=== PATIENT | male | born 1965 | race African-American/Black ===

== ENCOUNTER 2017-08-21 13:30 | Emergency (ER) | payer SELFPAY ==
[2017-08-21] MEDS ORDERED: ONDANSETRON PF 4 MG/2 ML VIAL. IV (13:45)
[2017-08-21 13:54] LABS: ADD MAN DIFF? NO
[2017-08-21] MEDS: IV NORMAL SALINE 1000ML BAG 1,000 ML IV ×2 (13:54→14:12)
[2017-08-21 13:57] LABS: BASO % 1 % (0-3); EOS # 0.4 x10^3/uL (0.0-0.7); EOS % 10 % (0-3); HEMATOCRIT 46.9 % (39.0-53.0); HEMOGLOBIN 16.3 g/dL (13.0-17.5); LYMPH % 42 % (24-48); MEAN CORPUSCULAR HEMOGLOBIN 31 pg (25-35); MEAN CORPUSCULAR HGB CONC 35 g/dL (31-37); MEAN CORPUSCULAR VOLUME 90 fL (79-100); MONO # 0.3 x10^3/uL (0.0-1.1); MONO % 7 % (0-9); NEUT # 1.9 x10^3uL (1.8-7.7); NEUT % 41 % (31-73); PLATELET COUNT 333 x10^3/uL (140-400); RED BLOOD COUNT 5.22 x10^6/uL (4.30-5.70); RED CELL DISTRIBUTION WIDTH 14.3 % (11.5-14.5); WHITE BLOOD COUNT 4.7 x10^3/uL (4.0-11.0)
[2017-08-21 14:12] LABS: ANION GAP 10 (6-14); BLOOD UREA NITROGEN 14 mg/dL (8-26); BUN/CREATININE RATIO 11 (6-20); CALCIUM 8.4 mg/dL (8.5-10.1); CARBON DIOXIDE 29 mmol/L (21-32); CHLORIDE 102 mmol/L (98-107); CREATININE 1.3 mg/dL (0.7-1.3); GFR 70.4; GLUCOSE 99 mg/dL (70-99); POTASSIUM 3.5 mmol/L (3.5-5.1); SODIUM 141 mmol/L (136-145)
[2017-08-21 14:19] LABS: ALBUMIN 3.9 g/dL (3.4-5.0); ALK PHOS 66 U/L (46-116); ALT (SGPT) 36 U/L (16-63); AST (SGOT) 15 U/L (15-37); TOTAL BILIRUBIN 0.5 mg/dL (0.2-1.0)
[2017-08-21 15:35] LABS: BILIRUBIN,URINE NEGATIVE (NEG); CLARITY,URINE CLEAR; COLOR,URINE YELLOW; GLUCOSE,URINE NEGATIVE (NEG); NITRITE,URINE NEGATIVE (NEG); PROTEIN,URINE NEGATIVE (NEG-TRACE)
[2017-08-21 15:49] LABS: BACTERIA,URINE 0 /HPF (0-FEW); RBC,URINE 0 /HPF (0-2); SQUAMOUS EPITHELIAL CELL,UR FEW /LPF; WBC,URINE 0 /HPF (0-4)
== END 2017-08-21 16:00 | disposition home or self-care (01) ==
LOC: ER 13:30
DX: T67.5XXA Heat exhaustion, unspecified, initial encounter (principal); E86.0 Dehydration; Z91.012 Allergy to eggs; X30.XXXA Exposure to excessive natural heat, initial encounter; Y93.89 Activity, other specified; Y99.8 Other external cause status; Y92.89 Other specified places as the place of occurrence of the external cause
CPT/HCPCS: 36415; 80053; 81001; 85025; 93005; 96360; 99285-25; J7030

== ENCOUNTER 2018-03-30 16:24 | Emergency (ER) | payer SELFPAY ==
[~2018-03-30] VITALS: Ht 175.3 cm; Wt 81.6 kg
[~2018-03-30 16:24] MED LIST: HYDR-2761 PO; IBUPROFEN PO; NAPROSYN PO; ONDA4TAB10 SL; OXYC1TAB15 PO; PANT40TA3 PO; PRED-220 PO
[2018-03-30 16:35] VITALS: BP 125/83
[2018-03-30 17:26] LABS: BILIRUBIN,URINE NEGATIVE (NEG); CLARITY,URINE CLEAR; COLOR,URINE YELLOW; NITRITE,URINE NEGATIVE (NEG); PH,URINE 5.5; PROTEIN,URINE NEGATIVE (NEG-TRACE); UROBILINOGEN,URINE 0.2 mg/dL (0.2 mg/dL)
[2018-03-30 17:36] LABS: SQUAMOUS EPITHELIAL CELL,UR FEW /LPF
[2018-03-30 17:37] LABS: BACTERIA,URINE 0 /HPF (0-FEW); RBC,URINE 0 /HPF (0-2); WBC,URINE 0 /HPF (0-4)
[2018-03-30 17:40] LABS: BARBITURATES NEG (NEG); BENZODIAZEPINES NEG (NEG); CANNABINOIDS NEG (NEG); COCAINE POS (NEG); METHADONE NEG (NEG); OPIATES NEG (NEG); PHENCYCLIDINE NEG (NEG)
[2018-03-30 17:42] LABS: AMPHETAMINE/METHAMPHETAMINE NEG (NEG)
--- NOTE | 2018-03-30 17:45 | RAD ---
Indication: Sore throat for 3 days. Burning sensation in the hilar region. TECHNIQUE: 3 views of the soft tissue neck COMPARISON: None FINDINGS: Trachea is patent. No prevertebral soft tissue thickening. No metallic or calcific foreign body seen. Visualized lung apices are clear. Mild degenerative disc disease at C3-C4, C4-C5. IMPRESSION: No prevertebral/retropharyngeal soft tissue thickening. Electronically signed by: Wood Nguyễn DO (03/30/2018 5:42 PM) [facility]
[2018-03-30] MEDS ORDERED: AMOX875T PO (17:52)
--- NOTE | 2018-03-30 17:53 | PHYS DOC ---
Past Medical History Past Medical History: Anxiety, Hypertension (GIL LOPEZ APRN) Past Surgical History: Other Additional Past Surgical Histo: left elbow (GIL LOPEZ APRN) Alcohol Use: Occasionally Drug Use: None (GIL LOPEZ APRN) Adult General Chief Complaint Chief Complaint: SORE THROAT HPI HPI Patient is a 53 year old male who presents with a sore throat 4 days. The patient thinks that there is a parasite in his throat that he feels is some moving around from one side to the other. He states that he made himself vomit last night to try and get rid of the parasite. He denies fever, body aches or an inability to swallow. The patient is handling his own secretions. The patient denies recreational drug use. (GIL LOPEZ APRN) Review of Systems Review of Systems Constitutional: Denies fever or chills [] Eyes: Denies change in visual acuity, redness, or eye pain [] HENT: See history of present illness Respiratory: Denies cough or shortness of breath [] Cardiovascular: No additional information not addressed in HPI [] GI: Denies abdominal pain, nausea, vomiting, bloody stools or diarrhea [] : Denies dysuria or hematuria [] Musculoskeletal: Denies back pain or joint pain [] Integument: Denies rash or skin lesions [] Neurologic: Denies headache, focal weakness or sensory changes [] Endocrine: Denies polyuria or polydipsia [] All other systems were reviewed and found to be within normal limits, except as documented in this note. (GIL LOPEZ APRN) Allergies Allergies Allergies Coded Allergies Type Severity Reaction Last Updated Verified egg Allergy Intermediate SEE COMMENT 08/21/17 Yes (MENA JONES MD) Physical Exam Physical Exam Constitutional: Well developed, well nourished, no acute distress, non-toxic appearance. [] HENT: Normocephalic, atraumatic, bilateral external ears normal, oropharynx moist, no oral exudates, nose normal. [] Eyes: PERRLA, EOMI, conjunctiva normal, no discharge. [] Neck: Normal range of motion, no tenderness, supple, no stridor. [] Cardiovascular:Heart rate regular rhythm, no murmur [] Lungs & Thorax: Bilateral breath sounds clear to auscultation [] Neurologic: Alert and oriented X 3, normal motor function, normal sensory function, no focal deficits noted. [] Psychologic: Affect normal, judgement normal, mood normal. [] (GIL LOPEZ APRN) Current Patient Data Vital Signs Vital Signs Date Time Temp Pulse Resp B/P (MAP) Pulse Ox O2 Delivery O2 Flow Rate FiO2 03/30/18 16:35 97.8 100 18 125/83 (97) 98 Room Air 97.8 (MENA JONES MD) Lab Values Laboratory Tests Test 03/30/18 16:50 03/30/18 16:55 Group A Streptococcus Rapid Negative (NEGATIVE) Urine Collection Type Unknown Urine Color Yellow Urine Clarity Clear Urine pH 5.5 Urine Specific [place] 1.015 Urine Protein Negative mg/dL (NEG-TRACE) Urine Glucose (UA) Negative mg/dL (NEG) Urine Ketones (Stick) Negative mg/dL (NEG) Urine Blood Negative (NEG) Urine Nitrite Negative (NEG) Urine Bilirubin Negative (NEG) Urine Urobilinogen Dipstick 0.2 mg/dL (0.2 mg/dL) Urine Leukocyte Esterase Negative (NEG) Urine RBC 0 /HPF (0-2) Urine WBC 0 /HPF (0-4) Urine Squamous Epithelial Cells Few /LPF Urine Bacteria 0 /HPF (0-FEW) Urine Mucus Slight /LPF Urine Opiates Screen Neg (NEG) Urine Methadone Screen Neg (NEG) Urine Barbiturates Neg (NEG) Urine Phencyclidine Screen Neg (NEG) Urine Amphetamine/Methamphetamine Neg (NEG) Urine Benzodiazepines Screen Neg (NEG) Urine Cocaine Screen Pos (NEG) Urine Cannabinoids Screen Neg (NEG) Urine Ethyl Alcohol Neg (NEG) (MENA JONES MD) EKG EKG [] (GIL LOPEZ APRN) Radiology/Procedures Radiology/Procedures []PATIENT: JUDY MILLER AACCOUNT: [id number]#: [id number] : 1965 LOCATION: ER AGE: 53 SEX: M EXAM STATUS: REG ER ORD. PHYSICIAN: GIL LOPEZ APRN REASON: patient feels like a foreign body is moving in his throat PROCEDURE: NECK SOFT TISSUE Indication: Sore throat for 3 days. Burning sensation in the hilar region. TECHNIQUE: 3 views of the soft tissue neck COMPARISON: None FINDINGS: Trachea is patent. No prevertebral soft tissue thickening. No metallic or calcific foreign body seen. Visualized lung apices are clear. Mild degenerative disc disease at C3-C4, C4-C5. IMPRESSION: No prevertebral/retropharyngeal soft tissue thickening. Electronically signed by: Wood Nguyễn DO (03/30/2018 5:42 PM) [facility] [place] DICTATED and SIGNED BY: WOOD NGUYỄN DO DATE: 03/30/181739 (GIL LOPEZ APRN) Course & Med Decision Making Course & Med Decision Making Pertinent Labs and Imaging studies reviewed. (See chart for details) []Imaging was negative for foreign body. I explained to the patient that nothing was noted on imaging. He is to take amoxicillin in case there is some source of infection and he is potentially feeling lymph nodes. He is to follow- up with ENT if continuing have symptoms. He is in agreement with this plan. (GIL LOPEZ APRN) Course & Med Decision Making Staff Physician Addendum: I was working in the ER during the course of this patient's visit. I was available for consultation as needed, but I was not directly involved in the care of this patient. (MENA JONES MD) Dragon Disclaimer Dragon Disclaimer This electronic medical record was generated, in whole or in part, using a voice recognition dictation system. (GIL LOPEZ APRN) Departure Departure Impression: Primary Impression: Pharyngitis Disposition: 01 HOME, SELF-CARE Condition: STABLE Referrals: NO PCP (PCP) ZINA BEDOYA MD Patient Instructions: Viral and Bacterial Pharyngitis Additional Instructions: Take the antibiotic as directed. If your symptoms have not resolved in 4 days follow-up with ENT or return to the emergency department if worsening. Scripts Amoxicillin (AMOXICILLIN) 875 Mg Tablet 1 TAB PO BID for pharyngitis, #20 TAB Prov: GIL LOPEZ APRN 03/30/18 GIL LOPEZ APRN Mar 30, 2018 17:52 MENA JONES MD Mar 31, 2018 19:36
== END 2018-03-30 18:05 | disposition home or self-care (01) ==
LOC: ER 16:24
DX: J02.9 Acute pharyngitis, unspecified (principal); F41.9 Anxiety disorder, unspecified; I10 Essential (primary) hypertension; Z91.012 Allergy to eggs
CPT/HCPCS: 70360; 80307; 81001; 87070; 87880; 99284-25

== ENCOUNTER 2018-07-30 06:08 | Emergency (ER) | payer SELFPAY ==
[~2018-07-30] VITALS: Ht 172.7 cm; Wt 83.5 kg
[~2018-07-30 06:08] MED LIST changes: +AMOX875T PO
[2018-07-30] MEDS ORDERED: IV NORMAL SALINE 1000ML BAG 1,000 ML IV SCH (06:54)
[2018-07-30] MEDS ORDERED: KETOROLAC 30 MG/ML VIAL. IV ONE (07:00)
[2018-07-30 07:13] LABS: BASO % 1 % (0-3); EOS # 0.3 x10^3/uL (0.0-0.7); EOS % 10 % (0-3); HEMATOCRIT 42.4 % (39.0-53.0); HEMOGLOBIN 14.7 g/dL (13.0-17.5); LYMPH # 1.2 x10^3/uL (1.0-4.8); LYMPH % 37 % (24-48); MEAN CORPUSCULAR HEMOGLOBIN 31 pg (25-35); MEAN CORPUSCULAR HGB CONC 35 g/dL (31-37); MEAN CORPUSCULAR VOLUME 90 fL (79-100); MONO # 0.3 x10^3/uL (0.0-1.1); MONO % 9 % (0-9); NEUT # 1.4 x10^3uL (1.8-7.7); NEUT % 43 % (31-73); PLATELET COUNT 243 x10^3/uL (140-400); RED BLOOD COUNT 4.72 x10^6/uL (4.30-5.70); RED CELL DISTRIBUTION WIDTH 13.8 % (11.5-14.5); WHITE BLOOD COUNT 3.3 x10^3/uL (4.0-11.0)
[2018-07-30 07:25] LABS: CREATININE 1.1 mg/dL (0.7-1.3); GFR 85.1; POTASSIUM 4.4 mmol/L (3.5-5.1)
[2018-07-30 07:31] LABS: ALBUMIN 3.3 g/dL (3.4-5.0); ALBUMIN/GLOBULIN RATIO 0.9 (1.0-1.7); TOTAL BILIRUBIN 0.3 mg/dL (0.2-1.0)
--- NOTE | 2018-07-30 07:52 | RAD ---
CT Abdomen and Pelvis without contrast History: Left flank pain Technique: Noncontrast CT imaging was performed of the abdomen and pelvis. Multiplanar images are reviewed. Exposure: One or more of the following individualized dose reduction techniques were utilized for this examination: 1. Automated exposure control 2. Adjustment of the mA and/or kV according to patient size 3. Use of iterative reconstruction technique. Comparison: October 18, 2013 Findings: There is no abnormality of the limited visualized lung bases. Accurate evaluation of the abdominal visceral organs is limited without intravenous contrast, no obvious focal abnormality of the liver, spleen, pancreas. Gallbladder is present without obvious intraluminal abnormality by CT. There is no adrenal nodularity. Urinary bladder is slightly distended. No renal or ureteral calculus is identified. There is no significant hydronephrosis of either kidney. Accurate evaluation of bowel is limited without oral contrast. Bowel is not significantly dilated. There is no free fluid or free air. There is again ventral umbilical fat-containing hernia, neck about 3 cm, no internal bowel. There is mild sigmoid diverticulosis not associated with significant inflammatory type change. Normal caliber appendix is believed to be visualized posterior to the cecum. There is minimal fat in the inguinal canals, no bowel. There are some fused osteophytes along the anterior sacroiliac joints bilaterally. There is multilevel lumbar facet degenerative change. There is some variable mild to moderate degenerative disc disease greatest at L3-4, mild spondylosis. IMPRESSION: 1. There is no urolithiasis or hydronephrosis. There is mild distention of the urinary bladder. 2. There is minimal sigmoid diverticulosis without evidence of diverticulitis. 3. There is fat-containing umbilical hernia, no internal bowel. Electronically signed by: Sonido Marquez MD (07/30/2018 7:49 AM) [facility]
[2018-07-30 07:55] LABS: BILIRUBIN,URINE NEGATIVE (NEG); CLARITY,URINE CLEAR; COLOR,URINE YELLOW; NITRITE,URINE NEGATIVE (NEG); PROTEIN,URINE NEGATIVE (NEG-TRACE)
[2018-07-30 07:57] LABS: BACTERIA,URINE 0 /HPF (0-FEW); RBC,URINE 0 /HPF (0-2); SQUAMOUS EPITHELIAL CELL,UR OCC /LPF; WBC,URINE 0 /HPF (0-4)
[2018-07-30 08:15] VITALS: BP 141/80
[2018-07-30] MEDS ORDERED: TRAM-48 PO (08:41)
[2018-07-30] MEDS ORDERED: CYCL10TA2 PO (08:41)
--- NOTE | 2018-07-30 08:41 | PHYS DOC ---
Past Medical History Past Medical History: Anxiety, Hypertension Past Surgical History: Other Additional Past Surgical Histo: left elbow Alcohol Use: Occasionally Drug Use: None Adult General Chief Complaint Chief Complaint: FLANK PAIN HPI HPI Patient is a 53 year old male who presents with complaining of left flank pain. Patient complaining of constant right flank pain for 1 week as an aching pain with left lower quadrant without nausea, vomiting, urinary symptoms, fever and chills, injury. Patient states he is lifting weights at his work and denies history of kidney stone and fever and chills. The patient rated his pain 10 over 10. Review of Systems Review of Systems Constitutional: Denies fever or chills [] Eyes: Denies change in visual acuity, redness, or eye pain [] HENT: Denies nasal congestion or sore throat [] Respiratory: Denies cough or shortness of breath [] Cardiovascular: No additional information not addressed in HPI [] GI: Denies abdominal pain, nausea, vomiting, bloody stools or diarrhea [] : Denies dysuria or hematuria [] Musculoskeletal: Denies back pain or joint pain [] Integument: Denies rash or skin lesions [] Neurologic: Denies headache, focal weakness or sensory changes [] Endocrine: Denies polyuria or polydipsia [] All other systems were reviewed and found to be within normal limits, except as documented in this note. Current Medications Current Medications Current Medications Medications (Trade) Dose Ordered Sig/Lilli Start Time Stop Time Status Last Admin Dose Admin Ketorolac Tromethamine (Toradol 30mg Vial) 30 mg 1X ONCE 07/30/18 07:00 07/30/18 07:01 DC 07/30/18 07:08 30 MG Sodium Chloride 1,000 ml @ 1,000 mls/hr Q1H 07/30/18 06:54 07/30/18 07:53 DC 07/30/18 07:08 1,000 MLS/HR Allergies Allergies Allergies Coded Allergies Type Severity Reaction Last Updated Verified egg Allergy Intermediate SEE COMMENT 08/21/17 Yes Physical Exam Physical Exam Constitutional: Well developed, well nourished, mild distress, non-toxic appearance. [] HENT: Normocephalic, atraumatic, oropharynx moist. Eyes: PERRLA, EOMI, conjunctiva normal, no discharge. [] Neck: Normal range of motion, no tenderness, supple, no stridor. [] Cardiovascular:Heart rate regular rhythm, no murmur [] Lungs & Thorax: Bilateral breath sounds clear to auscultation [] Abdomen: Bowel sounds normal, soft, no tenderness, no masses, no pulsatile masses. [] Skin: Warm, dry, no erythema, no rash. [] Back: No tenderness, no CVA tenderness. [] Extremities: No tenderness, no cyanosis, no clubbing, ROM intact, no edema. [] Neurologic: Alert and oriented X 3, normal motor function, normal sensory function, no focal deficits noted. [] Psychologic: Affect normal, judgement normal, mood normal. [] Current Patient Data Vital Signs Vital Signs Date Time Temp Pulse Resp B/P (MAP) Pulse Ox O2 Delivery O2 Flow Rate FiO2 07/30/18 08:15 76 18 141/80 (100) 100 Room Air 07/30/18 06:40 99.0 99.0 Lab Values Laboratory Tests Test 07/30/18 06:15 07/30/18 07:02 Urine Collection Type Unknown Urine Color Yellow Urine Clarity Clear Urine pH 7.0 Urine Specific [place] 1.015 Urine Protein Negative mg/dL (NEG-TRACE) Urine Glucose (UA) Negative mg/dL (NEG) Urine Ketones (Stick) Negative mg/dL (NEG) Urine Blood Negative (NEG) Urine Nitrite Negative (NEG) Urine Bilirubin Negative (NEG) Urine Urobilinogen Dipstick 1.0 mg/dL (0.2 mg/dL) Urine Leukocyte Esterase Negative (NEG) Urine RBC 0 /HPF (0-2) Urine WBC 0 /HPF (0-4) Urine Squamous Epithelial Cells Occ /LPF Urine Bacteria 0 /HPF (0-FEW) White Blood Count 3.3 x10^3/uL (4.0-11.0) L Red Blood Count 4.72 x10^6/uL (4.30-5.70) Hemoglobin 14.7 g/dL (13.0-17.5) Hematocrit 42.4 % (39.0-53.0) Mean Corpuscular Volume 90 fL (79-100) Mean Corpuscular Hemoglobin 31 pg (25-35) Mean Corpuscular Hemoglobin Concent 35 g/dL (31-37) Red Cell Distribution Width 13.8 % (11.5-14.5) Platelet Count 243 x10^3/uL (140-400) Neutrophils (%) (Auto) 43 % (31-73) Lymphocytes (%) (Auto) 37 % (24-48) Monocytes (%) (Auto) 9 % (0-9) Eosinophils (%) (Auto) 10 % (0-3) H Basophils (%) (Auto) 1 % (0-3) Neutrophils # (Auto) 1.4 x10^3uL (1.8-7.7) L Lymphocytes # (Auto) 1.2 x10^3/uL (1.0-4.8) Monocytes # (Auto) 0.3 x10^3/uL (0.0-1.1) Eosinophils # (Auto) 0.3 x10^3/uL (0.0-0.7) Basophils # (Auto) 0.0 x10^3/uL (0.0-0.2) Sodium Level 139 mmol/L (136-145) Potassium Level 4.4 mmol/L (3.5-5.1) Chloride Level 104 mmol/L (98-107) Carbon Dioxide Level 27 mmol/L (21-32) Anion Gap 8 (6-14) Blood Urea Nitrogen 18 mg/dL (8-26) Creatinine 1.1 mg/dL (0.7-1.3) Estimated GFR (Cockcroft-Gault) 85.1 BUN/Creatinine Ratio 16 (6-20) Glucose Level 105 mg/dL (70-99) H Calcium Level 9.0 mg/dL (8.5-10.1) Total Bilirubin 0.3 mg/dL (0.2-1.0) Aspartate Amino Transferase (AST) 15 U/L (15-37) Alanine Aminotransferase (ALT) 33 U/L (16-63) Alkaline Phosphatase 63 U/L (46-116) Total Protein 7.0 g/dL (6.4-8.2) Albumin 3.3 g/dL (3.4-5.0) L Albumin/Globulin Ratio 0.9 (1.0-1.7) L Lipase 118 U/L (73-393) Laboratory Tests 07/30/18 07:02 Laboratory Tests 07/30/18 07:02 EKG EKG [] Radiology/Procedures Radiology/Procedures [][facility] [address] [place] [address] IMAGING REPORT Signed PATIENT: JUDY MILLER ACCOUNT: [id number] : 1965 LOCATION: ER AGE: 53 SEX: M EXAM STATUS: REG ER ORD. PHYSICIAN: JOSE MCELROY MD REASON: left flank pain PROCEDURE: CT ABDOMEN PELVIS WO CONTRAST CT Abdomen and Pelvis without contrast History: Left flank pain Technique: Noncontrast CT imaging was performed of the abdomen and pelvis. Multiplanar images are reviewed. Exposure: One or more of the following individualized dose reduction techniques were utilized for this examination: 1. Automated exposure control 2. Adjustment of the mA and/or kV according to patient size 3. Use of iterative reconstruction technique. Comparison: October 18, 2013 Findings: There is no abnormality of the limited visualized lung bases. Accurate evaluation of the abdominal visceral organs is limited without intravenous contrast, no obvious focal abnormality of the liver, spleen, pancreas. Gallbladder is present without obvious intraluminal abnormality by CT. There is no adrenal nodularity. Urinary bladder is slightly distended. No renal or ureteral calculus is identified. There is no significant hydronephrosis of either kidney. Accurate evaluation of bowel is limited without oral contrast. Bowel is not significantly dilated. There is no free fluid or free air. There is again ventral umbilical fat-containing hernia, neck about 3 cm, no internal bowel. There is mild sigmoid diverticulosis not associated with significant inflammatory type change. Normal caliber appendix is believed to be visualized posterior to the cecum. There is minimal fat in the inguinal canals, no bowel. There are some fused osteophytes along the anterior sacroiliac joints bilaterally. There is multilevel lumbar facet degenerative change. There is some variable mild to moderate degenerative disc disease greatest at L3-4, mild spondylosis. IMPRESSION: 1. There is no urolithiasis or hydronephrosis. There is mild distention of the urinary bladder. 2. There is minimal sigmoid diverticulosis without evidence of diverticulitis. 3. There is fat-containing umbilical hernia, no internal bowel. Electronically signed by: Rupesh Mojica MD (07/30/2018 7:49 AM) [id number] DICTATED and SIGNED BY: RUPESH MOJICA MD DATE: 07/30/18 0749 Course & Med Decision Making Course & Med Decision Making Pertinent Labs and Imaging studies reviewed. (See chart for details) Evaluation of patient in ER showed 53-year-old male patient with complaining of left flank pain for 1 week. Patient had unremarkable physical exam and labs and CT abdomen and pelvis for mild diverticulosis. Plan discharge patient home with diagnose of flank pain with musculoskeletal origin. Dragon Disclaimer Dragon Disclaimer This electronic medical record was generated, in whole or in part, using a voice recognition dictation system. Departure Departure Impression: Primary Impression: Acute flank pain Additional Impressions: Diverticulosis Leukopenia Muscle strain Disposition: HOME, SELF-CARE (at 0 [phone]) Condition: IMPROVED Referrals: NO PCP (PCP) Patient Instructions: Diverticulosis, Muscle Strain Additional Instructions: Drink plenty of liquids Follow-up with your primary care physician in 3-5 days Return to ER if not getting better Apply Ice affected area Scripts Tramadol Hcl (ULTRAM) 50 Mg Tablet 50 MG PO Q6HRS PRN for PAIN, #14 TAB 0 Refills Prov: JOSE MCELROY MD 07/30/18 Cyclobenzaprine Hcl (CYCLOBENZAPRINE HCL) 10 Mg Tablet 1 TAB PO TID, #21 TAB Prov: JOSE MCELROY MD 07/30/18 Problem Qualifiers Additional Impressions: Leukopenia Leukopenia type: unspecified Qualified Codes: D72.819 - Decreased white blood cell count, unspecified JOSE MCELROY MD Jul 30, 2018 08:41
== END 2018-07-30 09:16 | disposition home or self-care (01) ==
LOC: ER 06:08
DX: K57.32 Diverticulitis of large intestine without perforation or abscess without bleeding (principal); D72.819 Decreased white blood cell count, unspecified; S39.011A Strain of muscle, fascia and tendon of abdomen, initial encounter; F41.9 Anxiety disorder, unspecified; I10 Essential (primary) hypertension; Z91.012 Allergy to eggs; X58.XXXA Exposure to other specified factors, initial encounter; Y93.89 Activity, other specified; Y92.89 Other specified places as the place of occurrence of the external cause; Y99.8 Other external cause status
CPT/HCPCS: 36415; 74176; 80053; 81001; 83690; 85025; 96374; 99285; J1885; J7030

== ENCOUNTER 2019-06-20 01:08 | Inpatient (IN) | payer SELFPAY ==
[~2019-06-20] VITALS: Ht 175.3 cm; Wt 80.1 kg
[~2019-06-20 01:08] MED LIST changes: +CYCL10TA2 PO; -PANT40TA3 PO; +PANT40TA77 PO; +TRAM-48 PO
[2019-06-20 01:35] LABS: BASO # 0.1 x10^3/uL (0.0-0.2); BASO % 1 % (0-3); EOS # 0.4 x10^3/uL (0.0-0.7); EOS % 5 % (0-3); HEMATOCRIT 49.5 % (39.0-53.0); HEMOGLOBIN 17.2 g/dL (13.0-17.5); LYMPH # 1.7 x10^3/uL (1.0-4.8); LYMPH % 24 % (24-48); MEAN CORPUSCULAR HEMOGLOBIN 31 pg (25-35); MEAN CORPUSCULAR HGB CONC 35 g/dL (31-37); MEAN CORPUSCULAR VOLUME 90 fL (79-100); MONO # 0.6 x10^3/uL (0.0-1.1); MONO % 9 % (0-9); NEUT # 4.3 x10^3/uL (1.8-7.7); NEUT % 61 % (31-73); PLATELET COUNT 329 x10^3/uL (140-400); RED CELL DISTRIBUTION WIDTH 13.6 % (11.5-14.5)
[2019-06-20 01:44] LABS: CALCIUM 9.3 mg/dL (8.5-10.1); CREATININE 1.3 mg/dL (0.7-1.3); GFR 69.9; POTASSIUM 3.9 mmol/L (3.5-5.1)
[2019-06-20 01:50] LABS: ALBUMIN 3.3 g/dL (3.4-5.0); ALBUMIN/GLOBULIN RATIO 0.8 (1.0-1.7); TOTAL BILIRUBIN 0.4 mg/dL (0.2-1.0); TOTAL PROTEIN 7.3 g/dL (6.4-8.2)
[2019-06-20] MEDS: MORPHINE SULFATE 4 MG/ML VIAL. IV/SQ PRN ×2 (01:51→07:56)
--- NOTE | 2019-06-20 01:52 | PHYS DOC ---
Past Medical History Past Medical History: Anxiety, Hypertension Past Surgical History: Other Additional Past Surgical Histo: left elbow Smoking Status: Never Smoker Alcohol Use: Occasionally Drug Use: None General Adult EDM: Chief Complaint: NEURO SYMPTOMS/DEFICITS HPI: HPI: Patient is a 54 year old male who presents with complaint of chest discomfort as well has some left-sided numbness that started yesterday morning at about 10:00 AM. Patient states that the chest pain has been waxing and waning since onset and currently pain is at a 6 out of 10. Family member had also indicated concerns stating that patient has been stumbling with ataxic gait throughout the day. Patient has had no headache. Patient has no speech deficits. He denies any nausea, vomiting or diaphoresis. [] Review of Systems: Review of Systems: Constitutional: Denies fever or chills. [] Respiratory: Denies cough or shortness of breath. [] Cardiovascular: Complains of chest pain. [] GI: Denies abdominal pain, nausea, vomiting or diarrhea. [] Integument: Denies rash. [] Neurologic: Denies headache. Patient reports left-sided numbness and tingling with unsteady gait. [] A full 10 point review of systems has been reviewed and is otherwise negative. Heart Score: HEART Score for Chest Pain: HEART Score for Chest Pain Response (Comments) Value History Slighlty/Non-Suspicious 0 ECG Nonspecific Repolarizatio 1 Age >45 - < 65 1 Risk Factors 1 or 2 Risk Factors 1 Troponin < Normal Limit 0 Total 3 Risk Factors: Risk Factors: DM, Current or recent (<one month) smoker, HTN, HLP, family history of CAD, obesity. Risk Scores: Score 0 - 3: 2.5% MACE over next 6 weeks - Discharge Home Score 4 - 6: 20.3% MACE over next 6 weeks - Admit for Clinical Observation Score 7 - 10: 72.7% MACE over next 6 weeks - Early Invasive Strategies Current Medications: Current Medications Medications (Trade) Dose Ordered Sig/Lilli Start Time Stop Time Status Last Admin Dose Admin Morphine Sulfate (Morphine Sulfate) 4 mg PRN Q15MIN PRN 06/20/19 01:30 06/21/19 01:29 Sodium Chloride 1,000 ml @ 1,000 mls/hr Q1H 06/20/19 02:00 06/20/19 02:59 Allergies: Allergies: Allergies Coded Allergies Type Severity Reaction Last Updated Verified egg Allergy Intermediate SEE COMMENT 08/21/17 Yes Physical Exam: PE: Constitutional: Well developed, well nourished, no acute distress, non-toxic appearance. [] HENT: Normocephalic, atraumatic, bilateral external ears normal, oropharynx moist, no oral exudates, nose normal. [] Eyes: PERRLA, EOMI, conjunctiva normal, no discharge. [] Neck: Normal range of motion, no tenderness, supple. [] Cardiovascular: Regular rate and rhythm [] Lungs & Thorax: Bilateral breath sounds clear to auscultation [] Abdomen: Bowel sounds normal, soft, no tenderness. [] Skin: Warm, dry, no erythema, no rash. [] Extremities: No tenderness, no cyanosis, no clubbing, ROM intact. [] Neurologic: Alert and oriented X 3, no focal deficits noted. [] Current Patient Data: Labs: Laboratory Tests Test 06/20/19 01:17 06/20/19 01:20 Glucose (Fingerstick) 92 mg/dL (70-99) White Blood Count 7.0 x10^3/uL (4.0-11.0) Red Blood Count 5.50 x10^6/uL (4.30-5.70) Hemoglobin 17.2 g/dL (13.0-17.5) Hematocrit 49.5 % (39.0-53.0) Mean Corpuscular Volume 90 fL (79-100) Mean Corpuscular Hemoglobin 31 pg (25-35) Mean Corpuscular Hemoglobin Concent 35 g/dL (31-37) Red Cell Distribution Width 13.6 % (11.5-14.5) Platelet Count 329 x10^3/uL (140-400) Neutrophils (%) (Auto) 61 % (31-73) Lymphocytes (%) (Auto) 24 % (24-48) Monocytes (%) (Auto) 9 % (0-9) Eosinophils (%) (Auto) 5 % (0-3) H Basophils (%) (Auto) 1 % (0-3) Neutrophils # (Auto) 4.3 x10^3/uL (1.8-7.7) Lymphocytes # (Auto) 1.7 x10^3/uL (1.0-4.8) Monocytes # (Auto) 0.6 x10^3/uL (0.0-1.1) Eosinophils # (Auto) 0.4 x10^3/uL (0.0-0.7) Basophils # (Auto) 0.1 x10^3/uL (0.0-0.2) Laboratory Tests 06/20/19 01:20 Vital Signs: Vital Signs Date Time Temp Pulse Resp B/P (MAP) Pulse Ox O2 Delivery O2 Flow Rate FiO2 06/20/19 01:28 98.8 16 133/82 (99) 99 Room Air 98.8 EKG: EKG: [] Radiology/Procedures: Radiology/Procedures: [] Impression: PROCEDURE: CT HEAD WO CONTRAST CT Head W/O Contrast: History: Left-sided weakness Comparison: December 20, 2015 Axial images were obtained without contrast. The shelley and white matter appears normal and symmetrical for the patients age. There is no mass effect, extraaxial fluid collections or hydrocephalus. There is no gross bleed. There is no focal loss of shelley-white matter distinction to suggest acute ischemia, i.e. stroke. Dense opacification of the ethmoid air cells and frontal sinus was seen previously. Impression: No acute findings. PQRS Compliance Statement: One or more of the following individualized dose reduction techniques were utilized for this examination: 1. Automated exposure control 2. Adjustment of the mA and/or kV according to patient size 3. Use of iterative reconstruction technique Electronically signed by: Raghav Bhandari III, MD (06/20/2019 1:59 AM) [id number] DICTATED and SIGNED BY: RAGHAV BHANDARI III, MD DATE: 06/20/19 0159 Course & Med Decision Making: Course & Med Decision Making Pertinent Labs and Imaging studies reviewed. (See chart for details) [] Dragon Disclaimer: Dragon Disclaimer: This electronic medical record was generated, in whole or in part, using a voice recognition dictation system. Departure Departure Impression: Primary Impression: Left-sided muscle weakness Additional Impressions: Ataxia Chest pain Qualified Codes: R07.9 - Chest pain, unspecified Disposition: 09 ADMITTED INPATIENT Admitting Physician: SANDRINE Condition: IMPROVED Referrals: NO PCP (PCP) THEODORE SINGER Jr. DO June 20, 2019 01:51
[2019-06-20] MEDS ORDERED: IV NORMAL SALINE 1000ML BAG 1,000 ML IV SCH (02:00)
--- NOTE | 2019-06-20 02:02 | RAD ---
CT Head W/O Contrast: History: Left-sided weakness Comparison: December 20, 2015 Axial images were obtained without contrast. The shelley and white matter appears normal and symmetrical for the patients age. There is no mass effect, extraaxial fluid collections or hydrocephalus. There is no gross bleed. There is no focal loss of shelley-white matter distinction to suggest acute ischemia, i.e. stroke. Dense opacification of the ethmoid air cells and frontal sinus was seen previously. Impression: No acute findings. RS Compliance Statement: One or more of the following individualized dose reduction techniques were utilized for this examination: 1. Automated exposure control 2. Adjustment of the mA and/or kV according to patient size 3. Use of iterative reconstruction technique Electronically signed by: Juan Francisco Bhandari III, MD (06/20/2019 1:59 AM) [id number]
--- NOTE | 2019-06-20 02:04 | RAD ---
PORTABLE CHEST 1V Clinical History: Chest pain Technique: AP view of the chest was obtained at 06/20/2019 1:21 AM. Comparison: December 20, 2015. Findings: The cardiomediastinal silhouette is normal. The pulmonary vasculature is normal. The lungs and pleural margins are clear. Impression: No evidence of an acute cardiopulmonary process. Electronically signed by: Juan Francisco Bhandari III, MD (06/20/2019 2:01 AM) [id number]
[2019-06-20] MEDS ORDERED: CONTRAST GIVEN. MC PRN (02:30)
--- NOTE | 2019-06-20 02:53 | RAD ---
CTA head with and without and CTA neck with contrast History: Left-sided weakness Technique: Axial images were obtained of the head without contrast and axial helical images were obtained of the head and neck after the intravenous administration of 75 mL of Isovue-370 IV contrast. Multiplanar reconstruction was performed on an independent work station including MIP imaging and 3D angiographic imaging. Comparison: none CTA head with and without contrast. Findings: Brain: The shelley and white matter appears symmetrical. There is no mass effect, extra-axial fluid collections or hydrocephalus. There is no gross bleed. There is dense opacification of the ethmoid air cells and frontal sinus. Distal carotid arteries: normal caliber Vertebral basilar system normal Major cerebral arteries: normal Impression: no acute findings end impression CTA neck with contrast: Findings: Aortic arch and origin of great vessels: normal Common carotid arteries: Right: normal Left: normal Internal carotid arteries: Right: normal Left: normal Vertebral basilar system normal There is moderate degenerative changes cervical spine with multilevel central and neuroforaminal stenosis. Impression: No significant stenosis. End impression These results were called to the Emergency Department and verified by read back at the time of dictation. PQRS Compliance Statement - Stenosis calculations for CT, MR and conventional angiography are based upon measurement of the distal ICA diameter in accordance with the NASCET methodology. Stenosis calculations for carotid ultrasound studies are derived from validated velocity criteria which are known to correlate with the NASCET methodology. PQRS Compliance Statement: One or more of the following individualized dose reduction techniques were utilized for this examination: 1. Automated exposure control 2. Adjustment of the mA and/or kV according to patient size 3. Use of iterative reconstruction technique Electronically signed by: Juan Francisco Bhandari III, MD (06/20/2019 2:50 AM) [email or web address]
[2019-06-20] MEDS ORDERED: IOHEXOL 350 MG/ML 100 ML VIAL. IV ONE (03:00)
[2019-06-20] MEDS ORDERED: ONDANSETRON PF 4 MG/2 ML VIAL. IV PRN (03:15)
[2019-06-20] MEDS: MORPHINE SULFATE 2 MG/ML VIAL. IV PRN ×3 (04:26→20:25)
[2019-06-20 07:20] VITALS: BP 116/72
--- NOTE | 2019-06-20 08:24 | CONS ---
DATE OF CONSULTATION: 06/20/2019 REASON FOR CONSULTATION: Chest pain. CONSULTING PHYSICIAN: Franky Copeland MD HISTORY OF PRESENT ILLNESS: The patient is a 54-year-old man, who presented to the ER this morning with stuttering chest pain and some gait issues. He subsequently underwent a head CT, chest x-ray and various laboratory studies, which have all been unremarkable. He has been transferred to the floor now. He currently reports some mild chest pain, partially worsened with exertion. There is a component of musculoskeletal pain as well. He denies any syncope, palpitations, orthopnea or PND. PAST MEDICAL HISTORY: 1. Hypertension. 2. GERD. PAST SURGICAL HISTORY: He had a left elbow surgery in the past. FAMILY HISTORY: Notable for cancer and hypertension. SOCIAL HISTORY: The patient denies any illicit drug use, but previously, he was positive for cocaine. He lives with family. No smoking. Occasional alcohol use. CURRENT CARDIOVASCULAR MEDICATIONS: None. REVIEW OF SYSTEMS: Negative for 10 out of 14 systems reviewed, unless otherwise mentioned above in HPI. PHYSICAL EXAMINATION: VITAL SIGNS: Afebrile, 78, 14, 119/74, 99% on room air. GENERAL: He is alert and oriented, no acute distress. HEAD AND NECK: Unremarkable. CARDIAC: Regular rate and rhythm without murmurs, rubs or gallops. LUNGS: Clear to auscultation. ABDOMEN: Soft, nontender. EXTREMITIES: No cyanosis, clubbing or edema. NEUROLOGIC: No focal deficits. MUSCULOSKELETAL: No trauma. DIAGNOSTIC STUDIES: Hemoglobin, platelets, troponin, potassium, creatinine within normal limits. He has normal BNP. Testing for drug screen is pending. Head CT and CT of the neck are unremarkable. EKG per medical records revealed no acute abnormalities, although I do not have the EKG for review. IMPRESSION: 1. Atypical chest pain. 2. History of hypertension, currently normotensive. 3. Prior drug abuse history. RECOMMENDATIONS: At this time, continue serial biomarkers, we will repeat an EKG and await urine drug screen. Depending on his clinical progress, we will consider further evaluation as necessary. He had an echocardiogram performed in 2016 and he had a normal LV function at that time with mild tricuspid regurgitation. Thank you for this consultation. d/w Dr. Hernandez WOODY AMAYA MD DR: IRVIN/rachel JOB#: [id number] / [id number] SETH
--- NOTE | 2019-06-20 09:42 | PDOC1 ---
History and Physical Date of Admission Date of Admission DATE: 06/20/19 TIME: 09:41 Source Source: Chart review History of Present Illness History of Present Illness Mr. Foss, is a 54 year old male who presents with complaint of chest discomfort as well has some left-sided numbness that started yesterday morning at about 10:00 AM. Patient states that the chest pain has been waxing and wanin g since onset and currently pain is at a 6 out of 10. Family member had also indicated concerns stating that patient has been stumbling with ataxic gait throughout the day. Patient has had no headache. Patient has no speech deficits. He denies any nausea, vomiting or diaphoresis. [] Past Medical History Cardiovascular: HTN Pulmonary: No pertinent hx GI: GERD Heme/Onc: No pertinent hx Hepatobiliary: No pertinent hx Psych: Anxiety Rheumatologic: No pertinent hx Infectious disease: No pertinent hx Renal/: No pertinent hx Endocrine: No pertinent hx Past Surgical History Past Surgical History: Other Family History Family History: Cancer, Hypertension Social History Smoke: No ALCOHOL: occassional Drugs: None Current Problem List Problem List Problems Medical Problems: (1) Ataxia Status: Acute (2) Chest pain Status: Acute (3) Left-sided muscle weakness Status: Acute Current Medications Current Medications Current Medications Morphine Sulfate (Morphine Sulfate) 4 mg PRN Q15MIN PRN IV/SQ PAIN GREATER THAN 3/10 Last administered on 06/20/19at 07:56; Start 06/20/19 at 01:30; Stop 06/21/19 at 01:29 Sodium Chloride 1,000 ml @ 1,000 mls/hr Q1H IV Last administered on 06/20/19at 01:50; Start 06/20/19 at 02:00; Stop 06/20/19 at 02:59; Status DC Iohexol (Omnipaque 350 Mg/ml) 75 ml 1X ONCE IV Last administered on 06/20/19at 02:48; Start 06/20/19 at 03:00; Stop 06/20/19 at 03:01; Status DC Info (CONTRAST GIVEN -- Rx MONITORING) 1 each PRN DAILY PRN MC SEE COMMENTS; Start 06/20/19 at 02:30; Stop 06/22/19 at 02:29 Ondansetron HCl (Zofran) 4 mg PRN Q8HRS PRN IV NAUSEA/VOMITING; Start 06/20/19 at 03:15; Stop 06/21/19 at 03:14 Morphine Sulfate (Morphine Sulfate) 2 mg PRN Q2HR PRN IV SEVERE PAIN 7-10 Last administered on 06/20/19at 04:26; Start 06/20/19 at 03:15; Stop 06/21/19 at 03:14 Lidocaine (Lidoderm) 1 patch DAILY TD ; Start 06/20/19 at 09:15 Miscellaneous (Lidoderm Patch Removal) 1 ea QHS MC ; Start 06/20/19 at 21:00 Active Scripts Active Ultram (Tramadol Hcl) 50 Mg Tablet 50 Mg PO Q6HRS PRN Cyclobenzaprine Hcl 10 Mg Tablet 1 Tab PO TID Amoxicillin 875 Mg Tablet 1 Tab PO BID Zofran Odt (Ondansetron) 4 Mg Tab.rapdis 1 Tab SL Q8HRS Hydrocodone-Apap 5-325 (Hydrocodone Bit/Acetaminophen) 1 Each Tablet 1-2 Tab PO Q4HRS PRN Protonix (Pantoprazole Sodium) 40 Mg Tablet.dr 40 Mg PO DAILY Reported Prednisone (Prednisone) 10 Mg Tablet 10 Mg PO DAILY [Ibuprofen] 200 Mg PO PRN PRN [Naprosyn] PO PRN PRN Percocet 5-325 Mg Tablet (Oxycodone/Acetaminophen) 1 Each Tablet 1 Tab PO PRN Q6HRS PRN Allergies Allergies: Coded Allergies: egg (Verified Allergy, Intermediate, SEE COMMENT, 08/21/17) "SWELLED UP AND THREW UP BUT ABLE TO EAT EGGS IN BAKED GOODS" ROS General: YES: Fatigue, Malaise; No: Chills, Night Sweats, Appetite, Other PSYCHOLOGICAL ROS: YES: Sleep disturbances; No: Anxiety, Behavioral Disorder, Concentration difficultie, Decreased libido, Depression, Disorientation, Hallucinations, Hostility, Irritablity, Memory difficulties, Mood Swings, Obsessive thoughts, Other Eyes: No Blurry vision, No Decreased vision, No Double vision, No Dry eyes, No Excessive tearing, No Eye Pain, No Itchy Eyes, No Loss of vision, No Photophobia, No Scotomata, No Uses contacts, No Uses glasses, No Other HEENT: YES: Heacaches; No: Visual Changes, Hearing change, Nasal congestion, Nasal discharge, Oral lesions, Sinus pain, Sore Throat, Epistaxis, Sneezing, Snoring, Tinnitus, Vertigo, Vocal changes, Other Respiratory: No: Cough, Hemoptysis, Orthopnea, Pleuritic Pain, Shortness of breath, SOB with excertion, Sputum Changes, Stridor, Tachypnea, Wheezing, Other Cardiovascular: yes Chest Pain Gastrointestinal: No Nausea, No Vomiting, No Abdominal Pain, No Diarrhea, No Constipation, No Melena, No Hematochezia, No Other Genitourinary: No Dysuria, No Frequency, No Incontinence, No Hematuria, No Retention, No Discharge, No Urgency, No Pain, No Flank Pain, No Other, No , No , No , No , No , No , No Musculoskeletal: Yes Joint Stiffness; No Gait Disturbance, No Joint Pain, No Joint Swelling, No Muscle Pain, No Muscular Weakness, No Pain In:, No Swelling In:, No Other Neurological: Yes Numbness/Tingling; No Behavorial Changes, No Bowel/Bladder ControlChng, No Confusion, No Dizziness, No Gait Disturbance, No Headaches, No Impaired Coord/balance, No Memory Loss, No Seizures, No Speech Problems, No Tremors, No Visual Changes, No Weakness, No Other Skin: Yes Dry Skin; No Eczema, No Hair Changes, No Lumps, No Mole Changes, No Mottling, No Nail Changes, No Pruritus, No Rash, No Skin Lesion Changes, No Other, No Acne Physical Exam General: Alert, Cooperative HEENT: PERRLA Lungs: Clear to auscultation Abdomen: Normal bowel sounds, Soft Extremities: No cyanosis, Normal pulses Skin: No rashes, No breakdown Neuro: Normal speech, Normal tone, Cranial nerves 3-12 NL Psych/Mental Status: Mood NL Vitals Vitals Vital Signs Date Time Temp Pulse Resp B/P (MAP) Pulse Ox O2 Delivery O2 Flow Rate FiO2 06/20/19 07:56 Room Air 06/20/19 07:20 98.2 83 16 116/72 (87) 97 98.2 Labs Labs Laboratory Tests Test 06/20/19 01:17 06/20/19 01:20 06/20/19 07:15 Glucose (Fingerstick) 92 mg/dL (70-99) White Blood Count 7.0 x10^3/uL (4.0-11.0) Red Blood Count 5.50 x10^6/uL (4.30-5.70) Hemoglobin 17.2 g/dL (13.0-17.5) Hematocrit 49.5 % (39.0-53.0) Mean Corpuscular Volume 90 fL (79-100) Mean Corpuscular Hemoglobin 31 pg (25-35) Mean Corpuscular Hemoglobin Concent 35 g/dL (31-37) Red Cell Distribution Width 13.6 % (11.5-14.5) Platelet Count 329 x10^3/uL (140-400) Neutrophils (%) (Auto) 61 % (31-73) Lymphocytes (%) (Auto) 24 % (24-48) Monocytes (%) (Auto) 9 % (0-9) Eosinophils (%) (Auto) 5 % (0-3) Basophils (%) (Auto) 1 % (0-3) Neutrophils # (Auto) 4.3 x10^3/uL (1.8-7.7) Lymphocytes # (Auto) 1.7 x10^3/uL (1.0-4.8) Monocytes # (Auto) 0.6 x10^3/uL (0.0-1.1) Eosinophils # (Auto) 0.4 x10^3/uL (0.0-0.7) Basophils # (Auto) 0.1 x10^3/uL (0.0-0.2) Sodium Level 141 mmol/L (136-145) Potassium Level 3.9 mmol/L (3.5-5.1) Chloride Level 103 mmol/L (98-107) Carbon Dioxide Level 29 mmol/L (21-32) Anion Gap 9 (6-14) Blood Urea Nitrogen 15 mg/dL (8-26) Creatinine 1.3 mg/dL (0.7-1.3) Estimated GFR (Cockcroft-Gault) 69.9 BUN/Creatinine Ratio 12 (6-20) Glucose Level 102 mg/dL (70-99) Calcium Level 9.3 mg/dL (8.5-10.1) Magnesium Level 2.0 mg/dL (1.8-2.4) Total Bilirubin 0.4 mg/dL (0.2-1.0) Aspartate Amino Transf (AST/SGOT) 17 U/L (15-37) Alanine Aminotransferase (ALT/SGPT) 30 U/L (16-63) Alkaline Phosphatase 73 U/L (46-116) Troponin I Quantitative < 0.017 ng/mL (0.000-0.055) < 0.017 ng/mL (0.000-0.055) GK-Vfu-W-Type Natriuretic Peptide 43 pg/mL (0-124) Total Protein 7.3 g/dL (6.4-8.2) Albumin 3.3 g/dL (3.4-5.0) Albumin/Globulin Ratio 0.8 (1.0-1.7) Laboratory Tests Test 06/20/19 01:17 06/20/19 01:20 06/20/19 07:15 Glucose (Fingerstick) 92 mg/dL (70-99) White Blood Count 7.0 x10^3/uL (4.0-11.0) Red Blood Count 5.50 x10^6/uL (4.30-5.70) Hemoglobin 17.2 g/dL (13.0-17.5) Hematocrit 49.5 % (39.0-53.0) Mean Corpuscular Volume 90 fL (79-100) Mean Corpuscular Hemoglobin 31 pg (25-35) Mean Corpuscular Hemoglobin Concent 35 g/dL (31-37) Red Cell Distribution Width 13.6 % (11.5-14.5) Platelet Count 329 x10^3/uL (140-400) Neutrophils (%) (Auto) 61 % (31-73) Lymphocytes (%) (Auto) 24 % (24-48) Monocytes (%) (Auto) 9 % (0-9) Eosinophils (%) (Auto) 5 % (0-3) Basophils (%) (Auto) 1 % (0-3) Neutrophils # (Auto) 4.3 x10^3/uL (1.8-7.7) Lymphocytes # (Auto) 1.7 x10^3/uL (1.0-4.8) Monocytes # (Auto) 0.6 x10^3/uL (0.0-1.1) Eosinophils # (Auto) 0.4 x10^3/uL (0.0-0.7) Basophils # (Auto) 0.1 x10^3/uL (0.0-0.2) Sodium Level 141 mmol/L (136-145) Potassium Level 3.9 mmol/L (3.5-5.1) Chloride Level 103 mmol/L (98-107) Carbon Dioxide Level 29 mmol/L (21-32) Anion Gap 9 (6-14) Blood Urea Nitrogen 15 mg/dL (8-26) Creatinine 1.3 mg/dL (0.7-1.3) Estimated GFR (Cockcroft-Gault) 69.9 BUN/Creatinine Ratio 12 (6-20) Glucose Level 102 mg/dL (70-99) Calcium Level 9.3 mg/dL (8.5-10.1) Magnesium Level 2.0 mg/dL (1.8-2.4) Total Bilirubin 0.4 mg/dL (0.2-1.0) Aspartate Amino Transf (AST/SGOT) 17 U/L (15-37) Alanine Aminotransferase (ALT/SGPT) 30 U/L (16-63) Alkaline Phosphatase 73 U/L (46-116) Troponin I Quantitative < 0.017 ng/mL (0.000-0.055) < 0.017 ng/mL (0.000-0.055) JL-Bff-N-Type Natriuretic Peptide 43 pg/mL (0-124) Total Protein 7.3 g/dL (6.4-8.2) Albumin 3.3 g/dL (3.4-5.0) Albumin/Globulin Ratio 0.8 (1.0-1.7) VTE Prophylaxis Ordered VTE Prophylaxis Devices: Yes VTE Pharmacological Prophylaxi: No Assessment/Plan Assessment/Plan chest pain, atypical for coronary chest pain, reproducible as costochondritis, with spasm and parathesia hx substance abuse CV consult, treat MS pain, and spasm MELINDA MCWILLIAMS MD June 20, 2019 09:41
[2019-06-20] MEDS ORDERED: oxyCODONE/APAP 5/325 1 TAB TABLET PO ONE (10:00)
[2019-06-20] MEDS: LIDOCAINE (700MG/PATCH) PATCH. TD SCH (10:06)
[2019-06-20] MEDS: ENOXAPARIN 40 MG/0.4 ML SYRINGE. SQ SCH (10:07)
[2019-06-20] MEDS ORDERED: CYCLOBENZAPRINE 10 MG TABLET. PO ONE (10:15)
[2019-06-20] MEDS: PANTOPRAZOLE 40 MG TABLET.DR. PO SCH (11:19)
[2019-06-20 11:20] VITALS: BP 138/91
[2019-06-20 15:22] VITALS: BP 90/54
[2019-06-20 19:40] VITALS: BP 112/71
[2019-06-20] MEDS ORDERED: LISI-334 PO (20:01)
[2019-06-20] MEDS ORDERED: DICY20TA3 PO (20:02)
[2019-06-20] MEDS ORDERED: GABA300C9 PO (20:02)
[2019-06-20] MEDS ORDERED: ALPR0.5T6 PO (20:02)
[2019-06-20] MEDS ORDERED: ALPRAZolam 0.5 MG TABLET PO PRN (20:15)
[2019-06-20] MEDS ORDERED: DICYCLOMINE HCL 10 MG CAPSULE PO PRN (20:15)
--- NOTE | 2019-06-20 20:46 | PDOC2 ---
NEUROLOGY CONSULT Date of Admission Date of Admission Full Report Dictated Patient is a pleasant 54-year-old man who presented with chest pain, headache and left-sided numbness associated with weakness. The neurologic symptoms have resolved. The chest pain would appear to be costochondritis. I will initiate some investigation to make certain there was not an ischemic event with left- sided symptoms that lasted around [address] scan of the head was negative. CT angiogram of the head and neck was negative. I will order an MRI brain without contrast and echocardiogram with a bubble test. If negative he may be dismissed from a neurologic perspective. DATE: 06/20/19 TIME: 20:44 Current Medications Current Medications Current Medications Morphine Sulfate (Morphine Sulfate) 4 mg PRN Q15MIN PRN IV/SQ PAIN GREATER THAN 3/10 Last administered on 06/20/19at 07:56; Start 06/20/19 at 01:30; Stop 06/21/19 at 01:29 Sodium Chloride 1,000 ml @ 1,000 mls/hr Q1H IV Last administered on 06/20/19at 01:50; Start 06/20/19 at 02:00; Stop 06/20/19 at 02:59; Status DC Iohexol (Omnipaque 350 Mg/ml) 75 ml 1X ONCE IV Last administered on 06/20/19at 02:48; Start 06/20/19 at 03:00; Stop 06/20/19 at 03:01; Status DC Info (CONTRAST GIVEN -- Rx MONITORING) 1 each PRN DAILY PRN MC SEE COMMENTS; Start 06/20/19 at 02:30; Stop 06/22/19 at 02:29 Ondansetron HCl (Zofran) 4 mg PRN Q8HRS PRN IV NAUSEA/VOMITING; Start 06/20/19 at 03:15; Stop 06/21/19 at 03:14 Morphine Sulfate (Morphine Sulfate) 2 mg PRN Q2HR PRN IV SEVERE PAIN 7-10 Last administered on 06/20/19at 20:25; Start 06/20/19 at 03:15; Stop 06/21/19 at 03:14 Lidocaine (Lidoderm) 1 patch DAILY TD Last administered on 06/20/19at 10:06; Start 06/20/19 at 09:15 Miscellaneous (Lidoderm Patch Removal) 1 ea QHS MC ; Start 06/20/19 at 21:00 Enoxaparin Sodium (Lovenox Per Pharmacy Prophylaxis Dosing) 1 each PRN DAILY PRN MC SEE COMMENTS; Start 06/20/19 at 09:45 Enoxaparin Sodium (Lovenox 40mg Syringe) 40 mg Q24H SQ Last administered on 06/20/19at 10:07; Start 06/20/19 at 10:00 Oxycodone/ Acetaminophen (Percocet 5/325) 1 tab PRN Q4HRS PRN PO PAIN; Start 06/20/19 at 10:00 Oxycodone/ Acetaminophen (Percocet 5/325) 1 tab 1X ONCE PO Last administered on 06/20/19at 11:20; Start 06/20/19 at 10:00; Stop 06/20/19 at 10:06; Status DC Cyclobenzaprine HCl (Flexeril) 10 mg 1X ONCE PO Last administered on 06/20/19at 11:19; Start 06/20/19 at 10:15; Stop 06/20/19 at 10:16; Status DC Pantoprazole Sodium (Protonix) 40 mg DAILY PO Last administered on 06/20/19at 11:19; Start 06/20/19 at 10:00 Alprazolam (Xanax) 0.5 mg PRN Q8HRS PRN PO ANXIETY / AGITATION; Start 06/20/19 at 20:15 Gabapentin (Neurontin) 600 mg TID PO ; Start 06/20/19 at 21:00 Lisinopril (Prinivil) 20 mg DAILY PO ; Start 06/21/19 at 09:00 Dicyclomine HCl (Bentyl) 20 mg PRN QID PRN PO STOMACH CRAMPING; Start 06/20/19 at 20:15 Active Scripts Active Protonix (Pantoprazole Sodium) 40 Mg Tablet.dr 40 Mg PO DAILY Reported Dicyclomine Hcl 20 Mg Tablet 20 Mg PO PRN QID PRN Alprazolam 0.5 Mg Tablet 0.5 Mg PO PRN Q8HRS PRN Gabapentin 300 Mg Capsule 600 Mg PO TID Lisinopril 20 Mg Tablet 20 Mg PO DAILY [Ibuprofen] 200 Mg PO PRN PRN Allergies Allergies: Coded Allergies: egg (Verified Allergy, Intermediate, SEE COMMENT, 08/21/17) "SWELLED UP AND THREW UP BUT ABLE TO EAT EGGS IN BAKED GOODS" Vitals VITALS Vital Signs Date Time Temp Pulse Resp B/P (MAP) Pulse Ox O2 Delivery O2 Flow Rate FiO2 06/20/19 20:25 20 Room Air 06/20/19 15:22 97.8 82 90/54 (66) 98 97.8 Labs Labs Laboratory Tests Test 06/20/19 01:17 06/20/19 01:20 06/20/19 07:15 06/20/19 10:15 Glucose (Fingerstick) 92 mg/dL (70-99) White Blood Count 7.0 x10^3/uL (4.0-11.0) Red Blood Count 5.50 x10^6/uL (4.30-5.70) Hemoglobin 17.2 g/dL (13.0-17.5) Hematocrit 49.5 % (39.0-53.0) Mean Corpuscular Volume 90 fL (79-100) Mean Corpuscular Hemoglobin 31 pg (25-35) Mean Corpuscular Hemoglobin Concent 35 g/dL (31-37) Red Cell Distribution Width 13.6 % (11.5-14.5) Platelet Count 329 x10^3/uL (140-400) Neutrophils (%) (Auto) 61 % (31-73) Lymphocytes (%) (Auto) 24 % (24-48) Monocytes (%) (Auto) 9 % (0-9) Eosinophils (%) (Auto) 5 % (0-3) Basophils (%) (Auto) 1 % (0-3) Neutrophils # (Auto) 4.3 x10^3/uL (1.8-7.7) Lymphocytes # (Auto) 1.7 x10^3/uL (1.0-4.8) Monocytes # (Auto) 0.6 x10^3/uL (0.0-1.1) Eosinophils # (Auto) 0.4 x10^3/uL (0.0-0.7) Basophils # (Auto) 0.1 x10^3/uL (0.0-0.2) Sodium Level 141 mmol/L (136-145) Potassium Level 3.9 mmol/L (3.5-5.1) Chloride Level 103 mmol/L (98-107) Carbon Dioxide Level 29 mmol/L (21-32) Anion Gap 9 (6-14) Blood Urea Nitrogen 15 mg/dL (8-26) Creatinine 1.3 mg/dL (0.7-1.3) Estimated GFR (Cockcroft-Gault) 69.9 BUN/Creatinine Ratio 12 (6-20) Glucose Level 102 mg/dL (70-99) Calcium Level 9.3 mg/dL (8.5-10.1) Magnesium Level 2.0 mg/dL (1.8-2.4) Total Bilirubin 0.4 mg/dL (0.2-1.0) Aspartate Amino Transf (AST/SGOT) 17 U/L (15-37) Alanine Aminotransferase (ALT/SGPT) 30 U/L (16-63) Alkaline Phosphatase 73 U/L (46-116) Troponin I Quantitative < 0.017 ng/mL (0.000-0.055) < 0.017 ng/mL (0.000-0.055) < 0.017 ng/mL (0.000-0.055) VQ-Ryj-L-Type Natriuretic Peptide 43 pg/mL (0-124) Total Protein 7.3 g/dL (6.4-8.2) Albumin 3.3 g/dL (3.4-5.0) Albumin/Globulin Ratio 0.8 (1.0-1.7) Laboratory Tests Test 06/20/19 01:17 06/20/19 01:20 06/20/19 07:15 06/20/19 10:15 Glucose (Fingerstick) 92 mg/dL (70-99) White Blood Count 7.0 x10^3/uL (4.0-11.0) Red Blood Count 5.50 x10^6/uL (4.30-5.70) Hemoglobin 17.2 g/dL (13.0-17.5) Hematocrit 49.5 % (39.0-53.0) Mean Corpuscular Volume 90 fL (79-100) Mean Corpuscular Hemoglobin 31 pg (25-35) Mean Corpuscular Hemoglobin Concent 35 g/dL (31-37) Red Cell Distribution Width 13.6 % (11.5-14.5) Platelet Count 329 x10^3/uL (140-400) Neutrophils (%) (Auto) 61 % (31-73) Lymphocytes (%) (Auto) 24 % (24-48) Monocytes (%) (Auto) 9 % (0-9) Eosinophils (%) (Auto) 5 % (0-3) Basophils (%) (Auto) 1 % (0-3) Neutrophils # (Auto) 4.3 x10^3/uL (1.8-7.7) Lymphocytes # (Auto) 1.7 x10^3/uL (1.0-4.8) Monocytes # (Auto) 0.6 x10^3/uL (0.0-1.1) Eosinophils # (Auto) 0.4 x10^3/uL (0.0-0.7) Basophils # (Auto) 0.1 x10^3/uL (0.0-0.2) Sodium Level 141 mmol/L (136-145) Potassium Level 3.9 mmol/L (3.5-5.1) Chloride Level 103 mmol/L (98-107) Carbon Dioxide Level 29 mmol/L (21-32) Anion Gap 9 (6-14) Blood Urea Nitrogen 15 mg/dL (8-26) Creatinine 1.3 mg/dL (0.7-1.3) Estimated GFR (Cockcroft-Gault) 69.9 BUN/Creatinine Ratio 12 (6-20) Glucose Level 102 mg/dL (70-99) Calcium Level 9.3 mg/dL (8.5-10.1) Magnesium Level 2.0 mg/dL (1.8-2.4) Total Bilirubin 0.4 mg/dL (0.2-1.0) Aspartate Amino Transf (AST/SGOT) 17 U/L (15-37) Alanine Aminotransferase (ALT/SGPT) 30 U/L (16-63) Alkaline Phosphatase 73 U/L (46-116) Troponin I Quantitative < 0.017 ng/mL (0.000-0.055) < 0.017 ng/mL (0.000-0.055) < 0.017 ng/mL (0.000-0.055) CH-Txa-J-Type Natriuretic Peptide 43 pg/mL (0-124) Total Protein 7.3 g/dL (6.4-8.2) Albumin 3.3 g/dL (3.4-5.0) Albumin/Globulin Ratio 0.8 (1.0-1.7) ALEXANDRA SHRESTHA MD June 20, 2019 20:46
[2019-06-20] MEDS ORDERED: PATCH REMOVAL. MC SCH (21:00)
--- NOTE | 2019-06-20 21:21 | CONS ---
DATE OF CONSULTATION: 06/20/2019 REFERRING PHYSICIAN: Franky Copeland MD REASON FOR CONSULTATION: Evaluate for stroke. HISTORY OF PRESENT ILLNESS: The patient is a 54-year-old man, who presented with severe chest pain and left-sided numbness and weakness. Symptoms began on the morning of 06/19/2019. The chest pain has persisted, but the symptoms of left arm and leg weakness have resolved by last evening. He did have a headache, but this has resolved. It did not affect speech. Initially, he had difficulty with balance, but this has also improved. The chest pain is in the center of the chest and increases with pressure upon his sternum or ribs. He has not had similar symptoms and denies any history of stroke. PAST MEDICAL HISTORY: 1. Hypertension. 2. Gastroesophageal reflux disease. 3. Generalized anxiety disorder. ALLERGIES: EGGS. MEDICINES PRIOR TO ADMISSION: Alprazolam 0.5 mg every 8 hours as needed, dicyclomine 20 mg 4 times per day as needed, gabapentin 600 mg 3 times per day, lisinopril 20 mg, pantoprazole 40 mg and ibuprofen as needed. FAMILY HISTORY: Pertinent for cancer and hypertension. SOCIAL HISTORY: He is and has 3 children. They are all out of the house. He exercises on his treadmill as well as doing a lot of walking at work. He does not smoke tobacco or use recreational drugs and only occasionally drinks alcohol. 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 REVIEW OF SYSTEMS: He had a headache, which has resolved. He has had no change in vision, hearing or cognition. He has had no trouble with nose or sinus. He has been able to chew and swallow without choking. He has not had shortness of breath. There is chest pain. There is no abdominal pain. He does not complain of bone or joint pain. He has not had fever or rash. Does not have any gastrointestinal or genitourinary complaint. Does not complain of numbness or weakness. He does have some anxiety. He does not complain of bruising, bleeding or swelling. PHYSICAL EXAMINATION: VITAL SIGNS: The blood pressure was 90/54, pulse 82, respirations 16, temperature 97.8 degrees Fahrenheit, oximetry was 98% on room air. His weight was 80.1 kilograms, height 69 inches with a calculated body mass index of 26.1. NEUROLOGIC: He was alert, awake and cooperative. Speech was fluent and clear. He had a good fund of recent and remote knowledge. Attention and concentration was intact. He appeared well groomed and well nourished. He was fully oriented. Examination of the cranial nerves revealed visual lozano were full to confrontation. Extraocular movements were intact. The eyes were conjugate. Pursuit movements were smooth and saccadic eye movements were without dysmetria. Pupils were 3-4 mm and reactive. Facial sensation was intact. The muscles of mastication and facial expression were powerful symmetrically. Hearing was intact to finger rub. The palate arched symmetrically and the tongue was midline with full motion. Sternocleidomastoid and trapezius were powerful. Muscle bulk and tone was normal. There was no arm drift or abnormal movement. There was no leg drift. Power was full and symmetric in the upper and lower extremities. Reflexes 2/4 and symmetric in the upper and lower extremities. Toes were downgoing. Coordination testing with adipfj-lc-kvan, duwu-qr-vkan, fine motor and rapid alternating movements was well performed. The sensory exam was intact to pain, light touch, proprioception, graphesthesia, cold thermal and vibration. There was no extinction to double simultaneous stimulation. Gait was normal base and steady. He is able to heel, toe and tandem walk. The Romberg stance was negative. NECK: Auscultation of the carotid arteries did not reveal a bruit. HEART: Rhythm was regular without a murmur. EXTREMITIES: Peripheral pulses were symmetric at the wrists and the feet and 2/4. There was no edema or cyanosis. CHEST: Palpation of the chest did provoke and reproduces typical pain. LABORATORY RESULTS: CBC was performed on 06/20/2019, revealing a normal white blood cell count, hemoglobin, hematocrit and platelet count. Chemistries were performed on 06/20/2019. Electrolytes were normal. BUN and creatinine were normal with a GFR that calculated at 69.9. Glucose was 102. Calcium and magnesium were normal. The liver enzymes were not elevated. Total protein was normal, but albumin was low at 3.3. BNP was not elevated. Troponin was measured on 3 occasions and was not elevated. IMAGING STUDIES: CTA of the head and neck was performed on 06/20/2019 and revealed no acute process. The CAT scan of the brain was also normal. There were moderate degenerative changes in the cervical spine. Chest x-ray was performed on 06/20/2019 and revealed no acute cardiopulmonary disease. IMPRESSION: The patient is a 54-year-old man with chest pain, which appears to be costochondritis. This would not be a pattern typical of coronary artery disease. The pain is quite reproducible by pushing on his sternum and ribs. He had potentially some neurologic deficit with left face, arm and leg numbness and weakness. He also seemed to have impaired balance and he did note that while impaired, he stumbled and almost fell. I cannot exclude that this may have been a transient ischemic attack. RECOMMENDATIONS: He has already had a CTA of the head and neck, so carotid Doppler would not be indicated. We can obtain an MRI brain to better evaluate for evidence of stroke. We can obtain an echocardiogram. I appreciate being involved in his care. ALEXANDRA SHRESTHA MD DR: MARYCRUZ/rachel JOB#: [id number] / [id number]
[2019-06-20] MEDS: oxyCODONE/APAP 5/325 1 TAB TABLET PO PRN (22:03)
[2019-06-20] MEDS: GABAPENTIN 300 MG CAPSULE. PO SCH (22:03)
[2019-06-20 22:36] VITALS: BP 94/57
[2019-06-21 03:14] VITALS: BP 108/74
--- NOTE | 2019-06-21 07:02 | EKG ---
[facility] [address] [place] [address] Test Date: 2019-06-20 Test Time: 01:16:21 Pat Name: JUDY MILLER Department: Room: [facility] Gender: M Store Promoter: : 1965 Requested By: THEODORE SINGER Order Number: [id number] Reading MD: Bo Chan Measurements Intervals [place] Rate: 88 P: 39 MA: 166 QRS: 4 QRSD: 70 T: 4 QT: 352 QTc: 429 Interpretive Statements SINUS RHYTHM LEFT ATRIAL ABNORMALITY Electronically Signed On 06-21-2019 7:52:50 CDT by Bo Chan
[2019-06-21 07:59] VITALS: BP 114/72
[2019-06-21] MEDS: PANTOPRAZOLE 40 MG TABLET.DR. PO SCH (08:48)
[2019-06-21] MEDS: GABAPENTIN 300 MG CAPSULE. PO SCH (08:48)
[2019-06-21] MEDS: LIDOCAINE (700MG/PATCH) PATCH. TD SCH (08:49)
[2019-06-21] MEDS ORDERED: LISINOPRIL 20 MG TABLET PO SCH (09:00)
[2019-06-21] MEDS: oxyCODONE/APAP 5/325 1 TAB TABLET PO PRN (09:01)
--- NOTE | 2019-06-21 09:16 | PDOC ---
PROGRESS NOTES Chief Complaint Chief Complaint A/P: chest pain, atypical for coronary - likely costochondritis, with spasm and parathesia hx substance abuse Left sided weakness - TIA given his resolution Ataxic gait - see above HTN GERD MARJORIE History of Present Illness History of Present Illness Mr Foss is a 54 yo M w/ PMHx HTN, GERD, MARJORIE who presented on 06/20/2019 with severe chest pain 8/10 and left-sided numbness and weakness and ataxic gait per family. Symptoms began on the morning of 06/19/2019. The chest pain has persisted, but the symptoms of left arm and leg weakness had resolved by ED presentation. He did have a headache, but this has resolved. It did not affect speech. Initially, he had difficulty with balance, but this has also improved. The chest pain is in the center of the chest and increases with pressure upon his sternum or ribs. He has not had similar symptoms and denies any history of stroke. EKG was NSR Troponin was measured on 3 occasions and was not elevated. Otherwise, labs WNL. CTA of the head and neck was performed on 06/20/2019 and revealed no acute process. The CAT scan of the brain was also normal. There were moderate degenerative changes in the cervical spine. Chest x-ray was performed on 06/20/2019 and revealed no acute cardiopulmonary disease. Seen by neurology and cardiology in consultation. MRI reviewed, no acute CVA. His neurologic symptoms have resolved. Still with some central chest discomfort worse on movement and with deep inspiration. Counseled on costochondritis. Advised ASA therapy at home. Vitals Vitals Vital Signs Date Time Temp Pulse Resp B/P (MAP) Pulse Ox O2 Delivery O2 Flow Rate FiO2 06/21/19 08:48 73 114/72 06/21/19 08:30 Room Air 06/21/19 07:59 97.2 18 100 97.2 Physical Exam General: Alert, Cooperative Lungs: Clear Abdomen: Normal bowel sounds, Soft Extremities: No cyanosis, Normal pulses Skin: No rashes, No breakdown Labs LABS Laboratory Tests Test 06/20/19 10:15 Troponin I Quantitative < 0.017 ng/mL (0.000-0.055) Assessment and Plan Assessmemt and Plan Problems Medical Problems: (1) Ataxia Status: Acute (2) Chest pain Status: Acute (3) Left-sided muscle weakness Status: Acute Comment Review of Relevant I have reviewed the following items daron (where applicable) has been applied. Labs Laboratory Tests Test 06/20/19 01:17 06/20/19 01:20 06/20/19 07:15 06/20/19 10:15 Glucose (Fingerstick) 92 mg/dL (70-99) White Blood Count 7.0 x10^3/uL (4.0-11.0) Red Blood Count 5.50 x10^6/uL (4.30-5.70) Hemoglobin 17.2 g/dL (13.0-17.5) Hematocrit 49.5 % (39.0-53.0) Mean Corpuscular Volume 90 fL (79-100) Mean Corpuscular Hemoglobin 31 pg (25-35) Mean Corpuscular Hemoglobin Concent 35 g/dL (31-37) Red Cell Distribution Width 13.6 % (11.5-14.5) Platelet Count 329 x10^3/uL (140-400) Neutrophils (%) (Auto) 61 % (31-73) Lymphocytes (%) (Auto) 24 % (24-48) Monocytes (%) (Auto) 9 % (0-9) Eosinophils (%) (Auto) 5 % (0-3) Basophils (%) (Auto) 1 % (0-3) Neutrophils # (Auto) 4.3 x10^3/uL (1.8-7.7) Lymphocytes # (Auto) 1.7 x10^3/uL (1.0-4.8) Monocytes # (Auto) 0.6 x10^3/uL (0.0-1.1) Eosinophils # (Auto) 0.4 x10^3/uL (0.0-0.7) Basophils # (Auto) 0.1 x10^3/uL (0.0-0.2) Sodium Level 141 mmol/L (136-145) Potassium Level 3.9 mmol/L (3.5-5.1) Chloride Level 103 mmol/L (98-107) Carbon Dioxide Level 29 mmol/L (21-32) Anion Gap 9 (6-14) Blood Urea Nitrogen 15 mg/dL (8-26) Creatinine 1.3 mg/dL (0.7-1.3) Estimated GFR (Cockcroft-Gault) 69.9 BUN/Creatinine Ratio 12 (6-20) Glucose Level 102 mg/dL (70-99) Calcium Level 9.3 mg/dL (8.5-10.1) Magnesium Level 2.0 mg/dL (1.8-2.4) Total Bilirubin 0.4 mg/dL (0.2-1.0) Aspartate Amino Transf (AST/SGOT) 17 U/L (15-37) Alanine Aminotransferase (ALT/SGPT) 30 U/L (16-63) Alkaline Phosphatase 73 U/L (46-116) Troponin I Quantitative < 0.017 ng/mL (0.000-0.055) < 0.017 ng/mL (0.000-0.055) < 0.017 ng/mL (0.000-0.055) EH-Lfm-V-Type Natriuretic Peptide 43 pg/mL (0-124) Total Protein 7.3 g/dL (6.4-8.2) Albumin 3.3 g/dL (3.4-5.0) Albumin/Globulin Ratio 0.8 (1.0-1.7) Laboratory Tests Test 06/20/19 10:15 Troponin I Quantitative < 0.017 ng/mL (0.000-0.055) Medications Current Medications Morphine Sulfate (Morphine Sulfate) 4 mg PRN Q15MIN PRN IV/SQ PAIN GREATER THAN 3/10 Last administered on 06/20/19at 07:56; Start 06/20/19 at 01:30; Stop at 01:29; Status DC Sodium Chloride 1,000 ml @ 1,000 mls/hr Q1H IV Last administered on 06/20/19at 01:50; Start 06/20/19 at 02:00; Stop 06/20/19 at 02:59; Status DC Iohexol (Omnipaque 350 Mg/ml) 75 ml 1X ONCE IV Last administered on 06/20/19at 02:48; Start 06/20/19 at 03:00; Stop 06/20/19 at 03:01; Status DC Info (CONTRAST GIVEN -- Rx MONITORING) 1 each PRN DAILY PRN MC SEE COMMENTS; Start 06/20/19 at 02:30; Stop 06/22/19 at 02:29 Ondansetron HCl (Zofran) 4 mg PRN Q8HRS PRN IV NAUSEA/VOMITING; Start 06/20/19 at 03:15; Stop 06/21/19 at 03:14; Status DC Morphine Sulfate (Morphine Sulfate) 2 mg PRN Q2HR PRN IV SEVERE PAIN 7-10 Last administered on 06/20/19at 20:25; Start 06/20/19 at 03:15; Stop 06/21/19 at 03:14; Status DC Lidocaine (Lidoderm) 1 patch DAILY TD Last administered on 06/21/19at 08:49; Start 06/20/19 at 09:15 Miscellaneous (Lidoderm Patch Removal) 1 ea QHS MC Last administered on 06/20/19at 21:00; Start 06/20/19 at 21:00 Enoxaparin Sodium (Lovenox Per Pharmacy Prophylaxis Dosing) 1 each PRN DAILY PRN MC SEE COMMENTS; Start 06/20/19 at 09:45 Enoxaparin Sodium (Lovenox 40mg Syringe) 40 mg Q24H SQ Last administered on 06/20/19at 10:07; Start 06/20/19 at 10:00 Oxycodone/ Acetaminophen (Percocet 5/325) 1 tab PRN Q4HRS PRN PO PAIN Last administered on 06/21/19at 09:01; Start 06/20/19 at 10:00 Oxycodone/ Acetaminophen (Percocet 5/325) 1 tab 1X ONCE PO Last administered on 06/20/19at 11:20; Start 06/20/19 at 10:00; Stop 06/20/19 at 10:06; Status DC Cyclobenzaprine HCl (Flexeril) 10 mg 1X ONCE PO Last administered on 06/20/19at 11:19; Start 06/20/19 at 10:15; Stop 06/20/19 at 10:16; Status DC Pantoprazole Sodium (Protonix) 40 mg DAILY PO Last administered on 06/21/19 08:48; Start 06/20/19 at 10:00 Alprazolam (Xanax) 0.5 mg PRN Q8HRS PRN PO ANXIETY / AGITATION Last administered on 06/20/19at 22:05; Start 06/20/19 at 20:15 Gabapentin (Neurontin) 600 mg TID PO Last administered on 06/21/19at 08:48; Start 06/20/19 at 21:00 Lisinopril (Prinivil) 20 mg DAILY PO Last administered on 06/21/19at 08:48; Start 06/21/19 at 09:00 Dicyclomine HCl (Bentyl) 20 mg PRN QID PRN PO STOMACH CRAMPING; Start 06/20/19 at 20:15 Lorazepam (Ativan Inj) 2 mg 1X ONCE IVP ; Start 06/20/19 at 21:00; Stop 06/20/19 at 21:01; Status Cancel Lorazepam (Ativan Inj) 2 mg 1X PRN PRN IVP BEFORE MRI Last administered on 06/21/19at 09:02; Start 06/21/19 at 06:00; Stop 06/22/19 at 05:59 Active Scripts Active Protonix (Pantoprazole Sodium) 40 Mg Tablet.dr 40 Mg PO DAILY Reported Dicyclomine Hcl 20 Mg Tablet 20 Mg PO PRN QID PRN Alprazolam 0.5 Mg Tablet 0.5 Mg PO PRN Q8HRS PRN Gabapentin 300 Mg Capsule 600 Mg PO TID Lisinopril 20 Mg Tablet 20 Mg PO DAILY [Ibuprofen] 200 Mg PO PRN PRN Vitals/I & O Vital Sign - Last 24 Hours 06/20/19 06/20/19 06/20/19 06/20/19 10:08 10:38 11:20 11:20 Temp 98.8 98.8 Pulse 87 Resp 12 18 B/P (MAP) 138/91 (107) Pulse Ox 97 98 O2 Delivery Room Air Room Air Room Air Room Air 06/20/19 06/20/19 06/20/19 06/20/19 12:20 15:22 19:40 20:00 Temp 97.8 98.0 97.8 98.0 Pulse 82 74 Resp 16 12 B/P (MAP) 90/54 (66) 112/71 (85) Pulse Ox 98 99 O2 Delivery Room Air Room Air Room Air Room Air 06/20/19 06/20/19 06/20/19 06/20/19 20:25 20:55 22:03 22:36 Pulse 80 Resp 20 18 20 16 B/P (MAP) 94/57 (69) Pulse Ox 97 O2 Delivery Room Air Room Air Room Air Room Air 06/20/19 06/21/19 06/21/1911/20 23:03 03:14 07:59 08:30 Temp 98.2 97.2 98.2 97.2 Pulse 67 73 Resp 20 16 18 B/P (MAP) 108/74 (85) 114/72 (86) Pulse Ox 91 100 O2 Delivery Room Air Room Air Room Air Room Air 06/21/19 08:48 Pulse 73 B/P (MAP) 114/72 Intake and Output 06/20/19 06/20/19 06/21/19 15:00 23:00 07:00 Intake Total 550 ml 590 ml 0 ml Output Total 350 ml Balance 550 ml 590 ml -350 ml YUKI MCKNIGHT MD June 21, 2019 09:16
--- NOTE | 2019-06-21 10:01 | RAD ---
MRI Brain without contrast History:Left side numbness and weakness Technique: Multiplanar, multisequential noncontrast MR imaging was performed of the brain. Comparison: December 21, 2015 Findings: There is no evidence of recent infarct or cytotoxic edema. The ventricles, sulci, and cisterns are within normal limits in size and configuration. There is no significant midline shift, intraaxial mass effect, or focal abnormal extra-axial fluid collection. There is no significant signal abnormality including hemosiderin deposition of the brain parenchyma. There is preservation of the major intracranial flow-voids at the skull base. The cerebellar tonsils are normal in location. There is no significant abnormality of the pineal gland or pituitary gland. There is severe bilateral ethmoid air cell opacification, some associated mild T1 hyperintense signal. There is also complete opacification of the frontal sinus. There is zdod-wq-dnfknvyb bilateral sphenoid sinus and also thickening, also bilateral maxillary sinuses. There are mucous retention cysts in maxillary sinuses bilaterally, more complex signal features on the left. There is a small air-fluid level of the right maxillary sinus. There is slightly disconjugate gaze. The mastoid air cells are aerated. There is preserved marrow signal of the clivus. Impression: 1. There is no evidence of recent infarct or other significant intracranial abnormality. 2. There is complete opacification of the bilateral ethmoid air cells and frontal sinus, other vepg-jc-xlawvylg maxillary and sphenoid sinus mucosal thickening. There is also small air-fluid level of the right maxillary sinus as may be due to acute sinusitis. Electronically signed by: Sonido Marquez MD (06/21/2019 9:58 AM) [id number]
[2019-06-21] MEDS: ENOXAPARIN 40 MG/0.4 ML SYRINGE. SQ SCH (10:21)
[2019-06-21] MEDS ORDERED: ASPI-612 PO (11:43)
--- NOTE | 2019-06-21 11:46 | PDOC3 ---
Discharge Summary Visit Information Date of Admission: June 20, 2019 Date of Discharge: June 21, 2019 Admitting Diagnosis: Ataxia, chest pain Final Diagnosis Problems Medical Problems: (1) Ataxia Status: Acute (2) Chest pain Status: Acute (3) Left-sided muscle weakness Status: Acute Brief Hospital Course Allergies Allergies Coded Allergies Type Severity Reaction Last Updated Verified egg Allergy Intermediate SEE COMMENT 08/21/17 Yes Vital Signs Vital Signs Date Time Temp Pulse Resp B/P (MAP) Pulse Ox O2 Delivery O2 Flow Rate FiO2 06/21/19 08:48 73 114/72 06/21/19 08:30 Room Air 06/21/19 07:59 97.2 18 100 97.2 Lab Results Laboratory Tests Test 06/20/19 01:17 06/20/19 01:20 06/20/19 07:15 06/20/19 10:15 Glucose (Fingerstick) 92 mg/dL (70-99) White Blood Count 7.0 x10^3/uL (4.0-11.0) Red Blood Count 5.50 x10^6/uL (4.30-5.70) Hemoglobin 17.2 g/dL (13.0-17.5) Hematocrit 49.5 % (39.0-53.0) Mean Corpuscular Volume 90 fL (79-100) Mean Corpuscular Hemoglobin 31 pg (25-35) Mean Corpuscular Hemoglobin Concent 35 g/dL (31-37) Red Cell Distribution Width 13.6 % (11.5-14.5) Platelet Count 329 x10^3/uL (140-400) Neutrophils (%) (Auto) 61 % (31-73) Lymphocytes (%) (Auto) 24 % (24-48) Monocytes (%) (Auto) 9 % (0-9) Eosinophils (%) (Auto) 5 % (0-3) Basophils (%) (Auto) 1 % (0-3) Neutrophils # (Auto) 4.3 x10^3/uL (1.8-7.7) Lymphocytes # (Auto) 1.7 x10^3/uL (1.0-4.8) Monocytes # (Auto) 0.6 x10^3/uL (0.0-1.1) Eosinophils # (Auto) 0.4 x10^3/uL (0.0-0.7) Basophils # (Auto) 0.1 x10^3/uL (0.0-0.2) Sodium Level 141 mmol/L (136-145) Potassium Level 3.9 mmol/L (3.5-5.1) Chloride Level 103 mmol/L (98-107) Carbon Dioxide Level 29 mmol/L (21-32) Anion Gap 9 (6-14) Blood Urea Nitrogen 15 mg/dL (8-26) Creatinine 1.3 mg/dL (0.7-1.3) Estimated GFR (Cockcroft-Gault) 69.9 BUN/Creatinine Ratio 12 (6-20) Glucose Level 102 mg/dL (70-99) Calcium Level 9.3 mg/dL (8.5-10.1) Magnesium Level 2.0 mg/dL (1.8-2.4) Total Bilirubin 0.4 mg/dL (0.2-1.0) Aspartate Amino Transf (AST/SGOT) 17 U/L (15-37) Alanine Aminotransferase (ALT/SGPT) 30 U/L (16-63) Alkaline Phosphatase 73 U/L (46-116) Troponin I Quantitative < 0.017 ng/mL (0.000-0.055) < 0.017 ng/mL (0.000-0.055) < 0.017 ng/mL (0.000-0.055) RU-Zbu-R-Type Natriuretic Peptide 43 pg/mL (0-124) Total Protein 7.3 g/dL (6.4-8.2) Albumin 3.3 g/dL (3.4-5.0) Albumin/Globulin Ratio 0.8 (1.0-1.7) Brief Hospital Course Mr Foss is a 54 yo M w/ PMHx HTN, GERD, MARJORIE who presented on 06/20/2019 with severe chest pain 09/19 and left-sided numbness and weakness and ataxic gait per family. Symptoms began on the morning of 06/19/2019. The chest pain has persisted, but the symptoms of left arm and leg weakness had resolved by ED presentation. He did have a headache, but this has resolved. It did not affect speech. Initially, he had difficulty with balance, but this has also improved. The chest pain is in the center of the chest and increases with pressure upon his sternum or ribs. He has not had similar symptoms and denies any history of stroke. EKG was NSR Troponin was measured on 3 occasions and was not elevated. Otherwise, labs WNL. CTA of the head and neck was performed on 06/20/2019 and revealed no acute process. The CAT scan of the brain was also normal. There were moderate degenerative changes in the cervical spine. Chest x-ray was performed on 06/20/2019 and revealed no acute cardiopulmonary disease. Seen by neurology and cardiology in consultation. MRI reviewed, no acute CVA. His neurologic symptoms have resolved. Still with some central chest discomfort worse on movement and with deep inspiration. Counseled on costochondritis. Advised ASA therapy at home. Problem list: chest pain, atypical for coronary - likely costochondritis, with spasm and parathesia hx substance abuse Left sided weakness - TIA given his resolution Ataxic gait - see above. Possibly also related to gabapentin + xanax as well as some undiagnosed sleep apnea with associated possible cataplexy. Counseled on need for sleep study outpatient HTN GERD MARJORIE Greater than 30 minutes spent on d/c Discharge Information Condition at Discharge: Improved Follow Up: Weeks (1) Disposition/Orders: D/C to Home Scheduled Aspirin (Aspirin Ec) 81 Mg Tablet., 1 TAB PO DAILY for Chest pain/TIA for 90 Days, #90 Ref 3 Take 325mg until 07/21/2019, then 81mg daily Prescribed by: YUKI MCKNIGHT MD on 06/21/19 1143 Gabapentin (Gabapentin) 300 Mg Capsule, 600 MG PO TID for neuropathy, (Reported) Entered as Reported by: REBECCA LABA on 06/20/192001 Last Action: Continued on 06/20/192003 by REBECCA ALBA Lisinopril (Lisinopril) 20 Mg Tablet, 20 MG PO DAILY for HTN, (Reported) Entered as Reported by: REBECCA ALBA on 06/20/192000 Last Action: Continued on 06/20/192003 by REBECCA ALBA Pantoprazole Sodium (Protonix ) 40 Mg Tablet., 40 MG PO DAILY, #30 Ref 0 Prescribed by: ERIS MCMANUS MD on 10/18/15 1531 Last Action: Continued on 06/20/19 1005 by MELINDA MCWILLIAMS Scheduled PRN Alprazolam (Alprazolam) 0.5 Mg Tablet, 0.5 MG PO PRN Q8HRS PRN for ANXIETY / AGITATION, (Reported) Entered as Reported by: REBECCA ALBA on 06/20/192001 Last Action: Continued on 06/20/192003 by REBECCA ALBA Dicyclomine Hcl (Dicyclomine Hcl) 20 Mg Tablet, 20 MG PO PRN QID PRN for PAIN, (Reported) Entered as Reported by: REBECCA ALBA on 06/20/192001 Last Action: Converted on 06/20/192003 by REBECCA ALBA Oxycodone/Apap 5-325 (Percocet 5-325 Mg Tablet ) 1 Each Tablet, 1 TAB PO PRN Q4HRS PRN for PAIN for 6 Days, #15 Prescribed by: YUKI MCKNIGHT MD on 06/21/19 1223 [Ibuprofen] , 200 MG PO PRN PRN for PAIN, (Reported) Entered as Reported by: NEGRITO FLORES on 10/10/14 1307 Last Action: HELD on 06/20/19 1005 by YUKI BARRETO MD June 21, 2019 11:46
[2019-06-21 11:56] VITALS: BP 120/88
[2019-06-21] MEDS ORDERED: OXYC1TAB15 PO (12:22)
[2019-06-21] MEDS ORDERED: ASPIRIN CHEWABLE 81 MG TABLET. PO ONE (12:30)
--- NOTE | 2019-06-21 13:09 | NUR ---
Pt left unit by wheelchair via private vehicle at approx 1306. Pt's IV removed with no complications and VSS upon discharge. Discharge paperwork discussed and sent with pt at time of discharge along with personal belongings. Pt had no additional concerns.
== END 2019-06-21 13:06 | disposition home or self-care (01) | DRG 206 ==
LOC: ER 01:08 → 6 SOUTH 03:33
PROVIDERS: ADMIT Internal Medicine; ATTEND Internal Medicine
DX: M94.0 Chondrocostal junction syndrome [Tietze] (principal); G45.9 Transient cerebral ischemic attack, unspecified; F41.1 Generalized anxiety disorder; I10 Essential (primary) hypertension; K21.9 Gastro-esophageal reflux disease without esophagitis; R26.0 Ataxic gait; M47.812 Spondylosis without myelopathy or radiculopathy, cervical region; Z91.012 Allergy to eggs; Z86.73 Personal history of transient ischemic attack (TIA), and cerebral infarction without residual deficits; Z80.9 Family history of malignant neoplasm, unspecified; Z82.49 Family history of ischemic heart disease and other diseases of the circulatory system
CPT/HCPCS: 36415; 70450; 70496; 70498; 70551; 71045; 80053; 82962; 83735; 83880; 84484; 85025; 93005; J1650; J2060; J2270; J7030; Q9967; G0378

== ENCOUNTER → 2020-02-07 | Outpatient (CLI) | payer OTHER ==
[~2020-02-07] MED LIST changes: +ALPR0.5T6 PO; +ASPI-886 PO; +DICY20TA3 PO; +GABA300C9 PO; +LISI-334 PO
--- NOTE | 2020-02-07 17:13 | EEG ---
DATE OF SERVICE: 02/07/2020 ELECTROENCEPHALOGRAM EEG NUMBER: [id number]. OBJECTIVE: The patient is a 55-year-old male with presyncope and feelings of zoning out and abnormal movements. DESCRIPTION: This is a digital study. Electrodes are placed according to the international 10-20 system. Bipolar and referential montages are available. Activation procedures typically include hyperventilation and intermittent photic stimulation. INTERPRETATION: The waking background consists of 9-10 Hz, 50-100 microvolt activity, symmetrically distributed over parietooccipital regions and reactive to eye opening. Hyperventilation and intermittent photic stimulation are noncontributory. Stage 1 sleep is achieved with normal electroencephalogram patterns. IMPRESSION: This electroencephalogram with the patient awake and asleep is within normal limits. There is no focal, paroxysmal or epileptiform activity. Thank you for letting us help with the patient's care. JUDY BURNS MD DR: YASMINE/rachel JOB#: [id number] / [id number] SHARRI Altamirano
== END ==
LOC: RT 09:08
PROVIDERS: ATTEND Nurse Practitioner Family
DX: R55 Syncope and collapse (principal); R25.9 Unspecified abnormal involuntary movements
CPT/HCPCS: 95816

== ENCOUNTER → 2020-03-08 | Outpatient (CLI) | payer OTHER ==
[~2020-03-08] MED LIST changes: -LISI-334 PO; +LISI20TA18 PO
--- NOTE | 2020-03-09 12:14 | SLEEP ---
DATE OF STUDY: 03/08/2020 POLYSOMNOGRAM OBJECTIVE: The patient is a 55-year-old male with snoring, fatigue, observed apnea, excessive somnolence. [place] sleep score 23. Height 5 feet 9 inches, weight 190 pounds, body mass index 28. INTERPRETATION: Sleep architecture is characterized by sleep efficiency of 90% across the 6.9 hours of recording time. Sleep onset latency is 10 minutes. There is an absence of slow-wave sleep, stage 3. Otherwise, Sleep architecture is normal. There are a total of 143 respiratory events for an apnea-hypopnea index of 23.1 events per hour of sleep. The minimum oxygen saturation is 78%. Most of the events are obstructive. The patient is started on treatment. At a setting of 12 cm, the apnea/hypopnea index falls to 0.6 events per hour of sleep. No significant cardiac arrhythmias or periodic limb movements of sleep are observed. IMPRESSION: Abnormal polysomnogram showing obstructive sleep apnea and hypopnea treatable on CPAP, 12 cm, using a ResMed full face mask, large size. RECOMMENDATIONS: 1. The patient should be established on this setting. 2. He should pursue weight loss and avoid sedatives and alcohol. Thank you for letting us help with the patient's care. JUDY BURNS MD DR: YASMINE/rachel JOB#: [id number] / [id number] PATSY Vidal MD, CHRISTINA FNP
== END ==
LOC: SLPLAB 18:52
PROVIDERS: ATTEND Nurse Practitioner Family
DX: G47.33 Obstructive sleep apnea (adult) (pediatric) (principal)
CPT/HCPCS: 95810

== ENCOUNTER → 2020-04-06 | Outpatient (CLI) | payer OTHER ==
--- NOTE | 2020-04-06 12:46 | RAD ---
EXAM: MRI Left KNEE DATE: 04/06/2020 9:31 AM CLINICAL INDICATION: Left knee pain COMPARISON: None. TECHNIQUE: Multiplanar, multisequence MRI of the Left knee was performed without contrast. FINDINGS: Moderate left knee joint effusion with associated synovitis. Small left Ibarra's cyst. Edema is seen t racking inferiorly along the lower leg. ACL and PCL are intact. Increased signal about the MCL, fibular collateral ligament, biceps femoris a nd IT band. Popliteus is intact, normal in signal and morphology. Lateral patellar tracking. Extensor mechanism is intact. There is likely trochlear dysplasia on the b asis of the trochlear depth. Medial meniscus: Trace free edge blunting of the posterior horn-root medial meniscus likely short seg ment radial tear. Lateral meniscus: Intact Full-thickness cartilage defect measures 2.1 cm in transverse dimension. Subchondral edema and cystic change. IMPRESSION: 1. Trace blunting and deformity of the posterior horn medial meniscus likely short segment radial te ar. 2. Left knee joint osteoarthritis with chondral effacement of the patella and subchondral edema and cystic change. 3. 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 Lateral patellar tracking. 4. Moderate left knee joint effusion with associated synovitis. Ibarra's cyst. Electronically signed by: Jules Rodrigues MD (04/06/2020 12:44 PM) [id number] Laterality
== END ==
LOC: MRI 09:43
PROVIDERS: ATTEND Family Medicine
DX: M17.12 Unilateral primary osteoarthritis, left knee (principal); M71.22 Synovial cyst of popliteal space [Baker], left knee; M25.462 Effusion, left knee
CPT/HCPCS: 73721